=== PATIENT | female | born 1960 | race Caucasian/White ===

== ENCOUNTER 2021-10-12 13:05 | Outpatient (CLI) | payer OTHER | END 2021-10-12 13:06 | disposition home or self-care (01) | LOC: CSHMRI 13:05 | PROVIDERS: ATTEND Nurse Practitioner Family | DX: M54.16 Radiculopathy, lumbar region (principal); M47.816 Spondylosis without myelopathy or radiculopathy, lumbar region | CPT/HCPCS: 72148 ==

== ENCOUNTER 2022-05-31 15:47 | Outpatient (CLI) | payer OTHER | END 2022-05-31 15:48 | disposition home or self-care (01) | LOC: CSHRAD 15:47 | PROVIDERS: ATTEND Physician Assistant | DX: M50.30 Other cervical disc degeneration, unspecified cervical region (principal) | CPT/HCPCS: 72040 ==

== ENCOUNTER 2022-09-17 16:24 | Outpatient (CLI) | payer OTHER | END 2022-09-17 16:25 | disposition home or self-care (01) | LOC: CSHRAD 16:24 | PROVIDERS: ATTEND Specialist | DX: M25.512 Pain in left shoulder (principal); M25.522 Pain in left elbow ==

== ENCOUNTER 2025-06-09 14:47 | Outpatient (CLI) | payer OTHER | END 2025-06-09 14:48 | disposition home or self-care (01) | LOC: CSHMAMMO 14:47 | PROVIDERS: ATTEND Family Medicine | DX: Z12.31 Encounter for screening mammogram for malignant neoplasm of breast (principal); Z80.3 Family history of malignant neoplasm of breast | CPT/HCPCS: 77063; 77067 ==